=== PATIENT | female | born 1955 | race Caucasian/White ===

== ENCOUNTER 2016-08-01 19:09 | Inpatient (IN) | payer OTHER ==
[~2016-08-01] VITALS: Ht 165.1 cm; Wt 100.6 kg
--- NOTE | ~2016-08-01 | CON ---
PATIENT'S NAME: SOHAN NUNEZ [facility] AGE: 61 Y [address] ROOM: [id number] [place], [place] [address] LOCATION: G3N ADMIT DATE: 08/01/2016 Consultation DISCHARGE DATE: FAMILY PHYSICIAN: PHYSICIAN, UNKNOWN ATTENDING PHYSICIAN: BOGDAN VELARDE CHIEF COMPLAINT: Right shoulder pain status post mechanical fall. HISTORY OF PRESENT ILLNESS: This is a 61-year-old female who says that she was at home and she accidentally tripped and fell over her dog and landed on her right side hitting her right shoulder against the ground. Right away, she feels this excruciating pain on the right shoulder and called 911. The patient was brought to the [place] [facility] for evaluation. X-ray of the right shoulder and humerus showed a spiral oblique fracture at the junction of the proximal and middle one-third humeral shaft and this is a noncomminuted. In [place], Dr. Goyal applied a coaptation splint and recommended surgery, but Dr. Goyal was not available to perform the surgery. Therefore, the patient was transferred here for surgery in the morning. She states the fall is purely mechanical that she accidentally tripped and fell over her dog. At baseline, the patient has a METS score of more than 4. She usually follow her care in [place] and sometime last year she has nonspecific and atypical chest pain which she was already evaluated by a building construction foreman in [place] where she had a stress test done last year and it was negative. She has not had any more atypical chest pain since then. It was believed that it was secondary due to the gastroesophageal reflux disease. She denies ever having any myocardial infarction or ever being told that she has had a heart failure or any atrial fibrillation. The patient at baseline denies any chest pain or dyspnea on exertion or at rest. Sometimes with intense exercise, she could feel shortness of breath and she attributes this due to her obesity. She does have obstructive sleep apnea and she wears CPAP at night all the time every day and very compliant and she uses 8 cm of a water pressure. REVIEW OF SYSTEMS: As mentioned in the history of present illness. All other systems reviewed and negative except those mentioned in history of present illness. PAST MEDICAL HISTORY: 1. Obstructive sleep apnea, on home CPAP at night using 8 cm of a water pressure. 2. Hypertension. 3. Hyperlipidemia. 4. Bipolar disorder. 5. Gastroesophageal reflux disease. 6. Overreactive bladder. PATIENT'S NAME: SOHAN NUNEZ [facility] AGE: 61 Y [address] ROOM: [id number] [place], [place] [address] LOCATION: [facility] ADMIT DATE: 08/01/2016 Consultation DISCHARGE DATE: FAMILY PHYSICIAN: PHYSICIAN, UNKNOWN ATTENDING PHYSICIAN: BOGDAN VELARDE 7. Depression. ALLERGIES: 1. IV CONTRAST ALLERGY WHICH CAUSES ANAPHYLAXIS. 2. PERCOCET (HIVES). SOCIAL HISTORY: She denies any alcohol or illegal drug or cigarette smoking. PAST SURGICAL HISTORY: 1. Status post appendectomy. 2. Status post left foot surgery in the past. 3. Status post skin cancer removal on the face. 4. Status post hysterectomy. FAMILY HISTORY: Father from lung cancer at age 45. He was a heavy smoker and mother from colon cancer at age 60s. PHYSICAL EXAMINATION: VITAL SIGNS: At the time of my dictation, temperature 98.7, heart rate 71, respirations 16, blood pressure 161/83, saturation 97% on room air. GENERAL APPEARANCE: Alert and oriented x3, in no acute distress. HEENT: Pupils are equally round and reactive to light. Extraocular muscles intact. Nasal turbinates are normal bilaterally. Moist oral mucosa. NECK: No JVD. CARDIOVASCULAR: Regular rate and rhythm. No murmur. No rubs. No gallops. RESPIRATORY: Clear. Chest wall nontender to palpation. ABDOMEN: Obese, soft, nontender, nondistended, bowel sounds present, no hepatosplenomegaly. No palpable mass. EXTREMITIES: Very faint +1 bilateral pitting edema in bilateral lower extremities. MUSCULOSKELETAL: Right upper extremity not examined given that she has fracture. Radial pulse present +2 bilaterally. Sensation intact in all 4 extremities. Muscle strength intact on the right upper extremity with good [place] gold attendant of the palm. SKIN: No ulcer, no rash, no cyanosis. NEUROLOGICAL: Grossly nonfocal. Refer to the musculoskeletal section for the right upper extremity for details. LABORATORY DATA: Troponin less than 0.04. ProBNP 65, CPK 287. CK-MB 3.7, white blood cells 7.7, hemoglobin 12, hematocrit 36.6, MCV 90.6, platelet 212, glucose 127, BUN 18, creatinine 1.0. Sodium 140, potassium 4.1, chloride 107, CO2 26, calcium 8.5, GFR 56, INR 0.94, PTT 26. Urinalysis pending. Prealbumin 33. PATIENT'S NAME: SOHAN NUNEZ [facility] AGE: 61 Y [address] ROOM: [place] [address] LOCATION: [facility] ADMIT DATE: 08/01/2016 Consultation DISCHARGE DATE: FAMILY PHYSICIAN: PHYSICIAN, UNKNOWN ATTENDING PHYSICIAN: BOGDAN VELARDE IMAGING STUDY: Chest x-ray on admission, official reading is pending, based on my review is grossly unremarkable. X-ray of the right shoulder and right humerus before and after the application of a coaptation splint was already reviewed by the orthopedic surgeon and per orthopedic surgeon's dictation, there is a spiral oblique fracture at the junction of the proximal and middle one-third humeral shaft. This is noncomminuted. The fracture commences several centimeters distal to the humeral neck. There is approximately 30 degree apex lateral angulation. Impression is moderately angulated and moderately displaced noncomminuted right proximal humerus shaft fracture. EKG on admission shows sinus rhythm, heart rate 69, OK 163 milliseconds, QRS 100 milliseconds, QTc 420 milliseconds, no acute ischemic changes. ASSESSMENT AND PLAN: 1. Regarding her moderately angulated and moderately displaced noncomminuted right proximal humerus shaft fracture status post mechanical fall. Defer to orthopedic surgery for surgical procedure. 2. Regarding her preoperative medical evaluation for orthopedic surgery. She is medically cleared. Per guideline of the noncardiac preoperative medical clearance for noncardiac surgery, the patient does not have any active contraindication at the moment to prevent her from undergoing orthopedic surgery. Orthopedic surgery is considered as an intermediate risk surgery. Her METS score is more than 4. Her EKG is nonischemic and normal. Troponin normal. ProBNP normal. She denies any chest pain. She denies any dyspnea at rest. She had a negative stress test in 2016 that was done in [place]. As mentioned before per guideline, the patient does not have active contraindication to undergo noncardiac surgery at the moment. Her chest x-ray looks unremarkable. Her lungs are clear. 3. Regarding her obstructive sleep apnea, on home CPAP. Continue CPAP at night. 4. Regarding her hypertension. Continue her home medication with atenolol 50 mg p.o. in the morning and 25 mg p.o. every evening and lisinopril 40 mg p.o. b.i.d. Put holding parameter for hold if systolic blood pressure less than 100 or heart rate less than 60. Also adding IV hydralazine and IV labetalol p.r.n. with holding parameter for uncontrolled hypertension. 5. Regarding her hyperlipidemia. Continue atorvastatin 40 mg p.o. daily. 6. Regarding her bipolar disorder. Continue lamotrigine and Seroquel at night. 7. Regarding her gastroesophageal reflux disease. Continue Protonix 40 mg p.o. daily. PATIENT'S NAME: SOHAN NUNEZ [facility] AGE: 61 Y [address] ROOM: [place] [address] LOCATION: [facility] ADMIT DATE: 08/01/2016 Consultation DISCHARGE DATE: FAMILY PHYSICIAN: PHYSICIAN, UNKNOWN ATTENDING PHYSICIAN: BOGDAN VELARDE 8. Regarding her overreactive bladder. For now, the patient has a bladder scan of 350 mL and she does not feel the urge to urinate. I will stop her home medication Sanctura to further prevent urinary retention. I will do a straight cath 1 time right now. The patient did receive IV Benadryl 50 mg IV x1 for some rash and itchiness secondary to Percocet. Benadryl can also cause urinary retention. I will stop the Percocet. Use IV morphine p.r.n. for pain control. 9. Regarding her depression. I will continue venlafaxine 300 mg p.o. daily. 10. Regarding her DVT prophylaxis. Per orthopedic surgery. Time spent on the day of consultation 45 minutes including chart review, interviewing the patient, examining the patient, addressing all the questions and concerns that the patient had, and then going over the plan of care with the patient and the nurses. JESSY SMITH MD CC/modl /[id number] d: 08/02/16 0717 t: 05/16/17 2323, CONSULTATION REPORT
--- NOTE | ~2016-08-01 | HP ---
PATIENT'S NAME: SOHAN NUNEZ [facility] AGE: 61 Y [address] ROOM: [place] [address] LOCATION: [facility] ADMIT DATE: 08/01/2016 History & Physical DISCHARGE DATE: FAMILY PHYSICIAN: PHYSICIAN, UNKNOWN ATTENDING PHYSICIAN: BOGDAN VELARDE DATE OF SERVICE: HISTORY OF PRESENT ILLNESS: Ms. Nunez is a 61-year-old female, transferred to [facility] by ambulance from Dr. Givens in [place]. The patient presented to the [place] [facility] with a chief complaint of right shoulder pain after she had tripped and fallen over her dog and landed on her right side. She denies history of preexisting right shoulder pain or dysfunction. She was evaluated by Dr. Nikko Goyal in the [place] [facility]. Dr. Goyal applied a coaptation splint and recommended surgery. Dr. Givens contacted me due to the fact that Dr. Goyal was not available to perform the proposed surgery, and due to the fact that the patient was not comfortable enough to return home. She denies numbness or paresthesias at her right hand. She denies pain elsewhere as a result of the incident. ALLERGIES: CONTRAST DYE. MEDICATIONS: 1. Atenolol. 2. Detrol. 3. Effexor. 4. Lamictal. 5. Lipitor. 6. Lisinopril. 7. Prilosec. 8. Seroquel. ACTIVE MEDICAL PROBLEMS: Hypertension, dyslipidemia, depression, bipolar disorder. SOCIAL HISTORY: Right-hand dominant. Lives independently. PHYSICAL EXAMINATION: GENERAL: An alert, oriented, well-hydrated, well-nourished, pleasant cooperative, mildly anxious female, who is in no distress. EXTREMITIES: There is a coaptation splint extending from the deltoid region around the right elbow. This is not removed to inspect the skin. Dr. Moura PATIENT'S NAME: SOHAN NUNEZ [facility] AGE: 61 Y [address] ROOM: [place] [address] LOCATION: [facility] ADMIT DATE: 08/01/2016 History & Physical DISCHARGE DATE: FAMILY PHYSICIAN: PHYSICIAN, UNKNOWN ATTENDING PHYSICIAN: BOGDAN VELARDE as well as the patient state that there was no disruption of the skin. Median, radial, and ulnar nerve, motor and sensory function are normal at the right hand. There is no swelling or tenderness at the right wrist or any of the digits in the right hand. 2+ radial pulse. RADIOGRAPHS: I have reviewed right shoulder and humerus x-rays from before and after application of a coaptation splint. There is a spiral-oblique fracture at the junction of the proximal and middle one-third humeral shaft. This is noncomminuted. There is no hardware at the humerus. There is no subluxation at the glenohumeral joint. There is no lytic lesion. The fracture commences several centimeter distal to the humeral neck. There is approximately 30- degrees apex lateral angulation. IMPRESSION: Moderately angulated, moderately displaced noncomminuted right proximal humerus shaft fracture. RECOMMENDATIONS: I have discussed operative and nonoperative options. I have informed the patient that there is a high chance that her fracture could heal except I believe without surgery. She states that she would be completely intolerant of nonoperative treatment. She is adamantly in favor of proceeding with surgical stabilization. I have encouraged her to consider a trial of nonoperative treatment, but she declines. I have recommended that we proceed with intramedullary rodding. She understands that there is an outside chance that open reduction and internal fixation with plate and screws may be necessary. I have discussed technical aspects of surgery as well as risks and limitations thereof. We have specifically discussed the potential for infection, malunion, nonunion, neurovascular complications, and the potential for pain at the rotator cuff region associated with adverse sequelae of nail insertion. She understands the potential need for hardware removal. All of her questions and concerns were answered to her satisfaction. We will proceed with open reduction and internal fixation (pending medical clearance and operating room availability). MD YOANNA STUBBS/dianelys PATIENT'S NAME: SOHAN NUNEZ [facility] AGE: 61 Y [address] ROOM: [place] [address] LOCATION: [facility] ADMIT DATE: 08/01/2016 History & Physical DISCHARGE DATE: FAMILY PHYSICIAN: PHYSICIAN, UNKNOWN ATTENDING PHYSICIAN: BOGDAN VELARDE /[id number] D: [id number] T: [id number] HISTORY & PHYSICAL
--- NOTE | ~2016-08-01 | OR ---
[facility] 61 Y [address] ROOM: [place] [id number] LOCATION: [facility] ADMIT DATE: 08/01/2016 OR/Procedure Report DISCHARGE DATE: FAMILY PHYSICIAN: PHYSICIAN, UNKNOWN ATTENDING PHYSICIAN: BOGDAN VELARDE SURGEON: Bogdan Velarde MD STAINED GLASS ARTIST: Braxton Hilario, PREFINISH OPERATOR/SOFTWARE WRITER. DATE OF PROCEDURE: 08/02/2016 PREOPERATIVE DIAGNOSIS: Right humeral shaft fracture. POSTOPERATIVE DIAGNOSIS: Right humeral shaft fracture. PROCEDURE PERFORMED: Intramedullary rodding right humeral shaft fracture. ANESTHESIA: General endotracheal anesthesia plus subcutaneous local anesthesia. DRAINS: None. SPECIMEN: None. COMPLICATIONS: None. IMPLANTS: Synthes 7 mm x 220 mm humeral nail with 2 proximal 4.0 mm locking screws. ESTIMATED BLOOD LOSS: Less than 50 mL. INDICATION FOR PROCEDURE: The patient is a 61-year-old female presenting with a long spiral-oblique proximal at the junction between the middle and proximal 1/3rd of her right humeral shaft. Risks, benefits, limitations, and alternatives to this procedure have been thoroughly reviewed, and informed consent has been granted. We have specifically discussed the potential for infection, neurovascular complications, malunion, nonunion, neurovascular complications, and potential need for further surgery. Informed consent has been granted. DESCRIPTION OF PROCEDURE: The patient placed in a modified beach chair position after administration of general endotracheal anesthesia and prophylactic antibiotics. The right shoulder and right upper extremity were prepped and draped with vigilant sterile technique. The humeral head entry point was approached through an oblique incision centered over the anterolateral deltoid. The underlying deltoid fibers were [facility]: 61 Y [address] ROOM: [address] [address] LOCATION: [facility] ADMIT DATE: 08/01/2016 OR/Procedure Report DISCHARGE DATE: FAMILY PHYSICIAN: PHYSICIAN, UNKNOWN ATTENDING PHYSICIAN: BOGDAN VELARDE split longitudinally in parallel with their fiber orientation to expose the humeral head. There was a preexisting rotator cuff tear involving the anterior 5-mm of the supraspinatus. This allowed me to widen the rotator interval to access the entry points with a guidewire. Appropriate position of the entry portal was confirmed fluoroscopically, and the cannulated entrance reamer was utilized using the appropriate soft tissue protector. The humeral canal was reamed to 8-mm through the soft tissue protector and over the guidewire. The nail was inserted over the guidewire to the appropriate depth after a ball-tipped guidewire had been placed across the fracture site and confirmed to be appropriately positioned under AP, lateral, and oblique fluoroscopic imaging. Due to the obliquity of the fracture (and its proximal medial extension), slightly less than anatomic alignment was achieved (due to a propensity for the fracture to shift into varus angulation). However, appropriate length and rotation were achieved. Approximately 10 degrees of residual varus alignment remained, but there was good medial cortical contact. Alignment was good enough that open reduction was not deemed necessary. The outrigger device was utilized to place 2 proximal locking screws. One of these was bicortical (at the humeral neck) and the other was unicortical at the humeral head. Due to the obliquity of the fracture, there was decent rotational stability, and, thus, I elected not to lock the nail distally. The incision was thoroughly irrigated with sterile saline containing bacitracin several times during the operation. A single percutaneous screw placement incision was closed with superficial buried interrupted Vicryl followed by surgical jayne. The deltoid incision was closed with 0 Vicryl in the rotator cuff and deltoid fascia followed by superficial buried interrupted 2-0 Vicryl and surgical ajyne. The dressings consisted of Xeroform gauze. A shoulder immobilizer was placed, and the patient was extubated and transported to the Postanesthesia Care Unit in stable, comfortable condition. MD YOANNA STUBBS/dianelys /[id number] d: 08/03/16604 t: 08/15/16 2220, OPERATIVE SUMMARY
--- NOTE | ~2016-08-01 | DS ---
[facility] 61 Y [address] ROOM: [place] [address] LOCATION: [facility] ADMIT DATE: 08/01/2016 Discharge Summary DISCHARGE DATE: 08/04/2016 FAMILY PHYSICIAN: Physician, Unknown ATTENDING PHYSICIAN: Leo Rendon PRIMARY DIAGNOSIS: Right humeral shaft fracture. SECONDARY DIAGNOSES: 1. Hypertension. 2. Dyslipidemia. 3. Depression. 4. Bipolar disorder. 5. Obstructive sleep apnea, on CPAP. PROCEDURE PERFORMED: Intramedullary rodding, right humeral shaft fracture. HISTORY: The patient is a 61-year-old female, presenting with a long spiral- oblique proximal fracture at the right humeral shaft. Please refer to her consultation notes as well as her admission history and physical. HOSPITAL COURSE: The patient underwent the above specified procedure on 08/02/2016 without complications. She received 24 hours of perioperative prophylactic antibiotics. She remained hemodynamically stable and neurovascularly intact throughout her entire hospital course. On her date of discharge, the incision at the shoulder was healing well and showed no signs of infection. DISPOSITION: Home. DISCHARGE DIET: Regular. DISCHARGE ACTIVITY: She is to be strict nonweightbearing of the right upper extremity. She is to continue her right arm sling multimedia assistant. There is to be no dressing changes. She is to notify Dr. Rendon immediately if she experiences increased pain, fevers, chills, erythema, or drainage. DISCHARGE MEDICATIONS: Morphine sulfate 15 mg, take 1 to 2 tablets p.o. every 4 hours as needed for pain. FOLLOWUP: Her Followup date is scheduled for 1 week subsequent to dismissal from the hospital for initial postoperative evaluation and x-rays at that time. PATIENT'S NAME: SOHAN NUNEZ [facility] AGE: 61 Y [address] ROOM: [place] [id number] LOCATION: [facility] ADMIT DATE: 08/01/2016 Discharge Summary DISCHARGE DATE: 08/04/2016 FAMILY PHYSICIAN: Physician, Unknown ATTENDING PHYSICIAN: Leo Rendon GILBERT FAY FOR MD VERNELL STUBBS/modl /[id number] d: 08/14/16 0451 t: 08/16/16 1040, DISCHARGE SUMMARY
[2016-08-01] MEDS ORDERED: TENORMIN25 MG PO ×2 (22:44)
[2016-08-01] MEDS ORDERED: DETROL LA4 MG PO (22:45)
[2016-08-01] MEDS ORDERED: EFFEXOR XR150 MG PO (22:45)
[2016-08-01] MEDS ORDERED: LIPITOR40 MG PO (22:46)
[2016-08-01] MEDS ORDERED: LAMICTAL200 MG PO (22:46)
[2016-08-01] MEDS ORDERED: ZESTRIL40 MG PO (22:47)
[2016-08-01] MEDS ORDERED: OMEPRAZOLE40 MG PO (22:49)
[2016-08-01] MEDS ORDERED: SEROQUEL200 MG PO (22:49)
[2016-08-01] MEDS ORDERED: ASPIRIN325 MG PO (22:50)
[2016-08-01] MEDS ORDERED: HUMIBID LA (MU600 MG PO (22:51)
[2016-08-01] MEDS ORDERED: FISH OIL 1,0001 EAC1 PO (22:57)
[2016-08-01] MEDS ORDERED: ASCORBIC ACID500 MG PO (22:58)
[2016-08-01] MEDS ORDERED: VITAMIN E400 UNI4 PO (22:58)
[2016-08-01] MEDS ORDERED: VITAMIN D1000 UNI1 PO (22:58)
[2016-08-01] MEDS ORDERED: B COMPLEX1 EACH PO (22:59)
[2016-08-01] MEDS ORDERED: THERA-VITE W/ B1 TAB PO (23:00)
[2016-08-01] MEDS ORDERED: CPAP INH (23:36)
--- NOTE | 2016-08-02 00:48 | NUR ---
Admission Note: Pt to floor from ER at 2215. Admitted for R) humerus FX. Pt states she was at home and had tripped over her dog and fell. Pt was taken to [facility] and MD attempted to reduce, was unsuccessful, so pt was brought to [facility]. History of HTN, high cholesterol, bipolar, anxiety, depression, incontinence, heartburn. Pt states she feels depressed several days, no suicidal thoughts. History of overdose 20 years ago. No recent suicidal attempts. Allergies to contrast dye. Plan for surgery tomorrow am with Dr. Rendon. Dr. Ardon consulted for clearance. IV present to L) wrist. Pt is , though travels for job and may not be able to get here, has granddaughter close.
[2016-08-02 01:18] LABS: BASOPHIL # 0.1 K/uL (0.0-0.2); BASOPHIL % 0.7 %; EOSINOPHIL # 0.2 K/uL (0.0-0.5); HEMATOCRIT 36.6 % (33.0-46.0); IMMATURE GRANULOCYTE % 0.4 %; LYMPHOCYTE # 2.3 K/uL (0.8-4.0); LYMPHOCYTE % 30.3 %; MCH 29.7 pg (27.0-34.0); MCHC 32.8 gm/dL (32.0-36.5); MCV 90.6 fl (83.0-98.0); MONOCYTE # 0.6 K/uL (0.0-1.0); MONOCYTE % 7.6 %; MPV 9.7 fl (9.4-12.4); NEUTROPHIL # (ANC) 4.5 K/uL (1.8-7.8); NRBC % 0 /100WBC (0-0.00); PLATELET COUNT 212 K/uL (150-450); RBC 4.04 M/uL (3.50-5.50); RDW-CV 13.9 % (11.9-14.6); WBC 7.7 K/uL (4.0-11.0)
[2016-08-02 01:24] LABS: INR - (THERAPEUTIC) 0.94 (0.92-1.07); PROTIME 9.9 SECONDS (9.8-11.4); PTT 26 SECONDS (25-32)
[2016-08-02 01:31] LABS: ANION GAP 11.1 (10.0-19.0); CALCIUM 8.5 mg/dL (8.5-10.5); POTASSIUM 4.1 mMol/L (3.7-5.1)
[2016-08-02 01:35] LABS: CPK 287 IU/L (21-215)
[2016-08-02 05:27] LABS: BLOOD URINE 10 /UL (NEGATIVE); COLOR URINE YELLOW (YELLOW); GLUCOSE URINE NEGATIVE (NEGATIVE); KETONE URINE 5 mg/dL (NEGATIVE); LEUKOCYTES URINE 100 /UL (NEGATIVE); NITRITE URINE NEGATIVE (NEGATIVE); PROTEIN URINE 30 mg/dL (NEGATIVE); TURBIDITY URINE CLEAR (CLEAR); UROBILINOGEN URINE 1 mg/dL (NORMAL)
[2016-08-02 05:49] LABS: BACTERIA URINE NEGATIVE (NEGATIVE); EPITHELIAL URINE 0-2 #/HPF (NEGATIVE)
[2016-08-02 05:50] LABS: MUCUS URINE 2+ (NEGATIVE)
--- NOTE | 2016-08-02 07:46 | NUR ---
Significant Event: Admitted at 2230. CSM WNL. Dressing is clean, dry and intact. Refused to get up due to arm pain. No void since admission. MD ordered straight cathed and did it at 0500 for 300ml. Hyperensive. Morphine at 0137. Patient became itching. Benadyl IV given at 0354. CPAP. Follow up:
--- NOTE | 2016-08-02 14:40 | NUR ---
Introduced self/role to patient. She lives in [place] with her Terrance. He will be coming home tomorrow and will be there to assist her as needed. She couldn't think of any DME that would be needed. Denied any other needs. She stated they can also call the axiliary ladies if she needs something. Wrote my name on her marker board. Was complaining of pain. Called her nurse Marla and alerted her.
--- NOTE | 2016-08-02 17:06 | NUR ---
Significant Event: Pt is a/o. Cooperative with cares. Returned from pacu @ 1345. will have 2nd hourly vs due @ 1830. CSM WNL, sling to R) arm. Dressing intact with small marked shadow drainage. Ice bag to shoulder. O2 weaned off. Amb to Br to void. 1 assist, gaitbelt. Morphine @ 1519. Zofran @ 9483. Poss discharge tomorrow. Follow up:
--- NOTE | 2016-08-03 05:24 | NUR ---
Significant Event: A/O X 3. CSM WNL. DENIES NUMBNESS OR TINGLING TO RIGHT SHOULDER, ARM. WIGGLES FINGERS RT HAND, EXTENDS FINGERS, RADIAL PULSE PRESENT FINGERS WARM TO TOUCH. DRSG INTACT WITH SMALL LILY AREEA SHADOW DRAINAGE. ICE BAG TO SITE. O2 REMAINED OFF THIS SHIFT. SATS 92%-94%. CPAP ON AT 0115. AT 2343 HAD MS 15MG AND TYLENOL 650 MG , PAIN RATED 5, LATER SLEEPING. AMBULATED TO ONE ASSIST GAITBELT VOIDED. BILATERAL FOOT PUMPS ON. PATIENT MOSTLY SLEPT IN RECLINER CHAIR, MORE COMFORTABLE. BP'S 137/70, BP 146/72 AT 2300 AND 0300. AT 1925 174/82. HR 74. Follow up:
[2016-08-03] MEDS ORDERED: MORPHINE 15MG I15 MG PO (10:09)
[2016-08-03] MEDS ORDERED: MIRALAX17 GM PO (10:10)
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
--- NOTE | 2016-08-04 14:04 | NUR ---
Patient is alert and oriented, VSS, on room air. SBA, can be ad rudolph but will call if needing to ambulate. R) arm is in a brace/sling. Morphine 1 tab was given at 1325. No IV access. Was ready to go home yesterday but is stuck in [place] due to flights being cancelled. Granddaughter is in [place] at patient's house but does not want her to drive in this weather. I have attempted to call Dr. Rendon but his phone went straight to voicemail. Will continue to try to update Dr. Rendon.
== END 2016-08-04 17:55 | disposition disaster alternative care site (69) | DRG 493 ==
LOC: GACC 19:09 → G3N 21:28 → GMSU 08-03 16:01
PROVIDERS: Internal Medicine; ADMIT Orthopaedic Surgery
PROC: 0PH Upper Bones, Insertion (ICD-10-PCS; principal; 2016-08-02)
DX: S42.341A Displaced spiral fracture of shaft of humerus, right arm, initial encounter for closed fracture (principal); J96.12 Chronic respiratory failure with hypercapnia; W01.0XXA Fall on same level from slipping, tripping and stumbling without subsequent striking against object, initial encounter; I10 Essential (primary) hypertension; E78.5 Hyperlipidemia, unspecified; E66.9 Obesity, unspecified; Z68.36 Body mass index [BMI] 36.0-36.9, adult; F31.9 Bipolar disorder, unspecified; G47.33 Obstructive sleep apnea (adult) (pediatric); N32.81 Overactive bladder; K21.9 Gastro-esophageal reflux disease without esophagitis; Z85.828 Personal history of other malignant neoplasm of skin; Z98.1 Arthrodesis status; Z79.82 Long term (current) use of aspirin
CPT/HCPCS: A9270; C1713; C1776; J0690; J1100; J1170; J1200; J2270; J2300; J2405; J3010; J3360; J3370; J7030; J7121